=== PATIENT | female | born 1960 | race Caucasian/White ===

== ENCOUNTER 2021-05-19 04:24 | Day surgery (SDC) | payer OTHER ==
[2021-05-18 09:32] VITALS: BMI 30.8
[2021-05-19] MEDS ORDERED: VASOPRESSIN 20 UNITS/ML VIAL IV ONE (11:55)
[2021-05-19] MEDS ORDERED: ELECTROLYTE-148 SOLN 1,000 ML IV SCH (12:15)
[2021-05-19] MEDS ORDERED: PROPOFOL 20 ML ONE ×2 (12:58)
[2021-05-19] MEDS ORDERED: LIDOCAINE HCL 1%, 10 MG/ML (20ML VIAL) INF ONE ×2 (13:31)
[2021-05-19] MEDS ORDERED: BACITRACIN 15 GM TUBE TOPICAL OINTMENT ONE (13:33)
[2021-05-19] MEDS ORDERED: ONDANSETRON 4 MG/2 ML VIAL ONE ×2 (13:44→13:59)
[2021-05-19] MEDS ORDERED: DEXAMETHASONE SOD PHOSPHATE 4 MG/1 ML VIAL ONE (13:44)
[2021-05-19] MEDS ORDERED: KETOROLAC TROMETHAMINE 30 MG/1 ML VIAL ONE (13:44)
[2021-05-19] MEDS ORDERED: ONDANSETRON 4 MG/2 ML VIAL IVPUSH PRN (14:00)
[2021-05-19] MEDS ORDERED: PROMETHAZINE HCL 25 MG/1 ML VIAL IVPUSH PRN (14:00)
[2021-05-19] MEDS ORDERED: PROMETHAZINE HCL 25 MG/1 ML VIAL ONE (14:22)
[2021-05-19 17:13] VITALS: BP 144/73; PULSE 93; TEMP 98.3
== END 2021-05-19 17:15 | disposition home or self-care (01) ==
LOC: JASU-SURG 04:24
PROVIDERS: ATTEND Urology
PROC: 0TSD0ZZ Reposition Urethra, Open Approach (ICD-10-PCS; principal; 2021-05-19 11:15)
DX: N39.3 Stress incontinence (female) (male) (principal)
CPT/HCPCS: 57288; C1771; 94760